=== PATIENT | male | born 1955 | race Two or more races ===

== ENCOUNTER 2020-11-02 11:06 | Emergency (ER) | payer MEDICARE ==
[~2020-11-02] VITALS: Ht 170.2 cm; Wt 75.0 kg
--- NOTE | 2020-11-02 11:12 | NUR ---
CODE BLUE: [facility] RESPONDED TO CALL TO RESIDENCE FOR ACUTELY ILL PATIENT. ARRIVED AT 1030AM. PATIENT AWAKE, RESTLESS. FOLLOWING COMMANDS. HOWEVER BREATHING LABORED/SHALLOW. PATIENT SHORTLY THERAFTER BECAME LISTLESS. CPR INITIATED AT 1035AM. EN ROUTE TO HOSPITAL RLE IO PLACED, #3 LMA PLACED PULSE CHECKS ALL ASYSTOLE. PATIENT GIVEN 4 ROUND OF EPI AND 2 ROUNDS OF BICARB. PATIENT ARRIVED AT 11:05AM. CPR IN PROGRESS, VENTILATED BY AMBU BAG WITH ASSESSMENT PATIENT REMAINS PULSELESS/PALE/MASSIVELY DISTENDED ABDOMEN/FIXED AND DIALATED PUPILS X2. 3 ROUNDS OF CPR PROVIDED. NO VITALS OBTAINABLE W/ EXCEPTION OF ETCO2 OF 30-35 WHILE CPR IN PROGRESS. ERP DEFERRING ADDITIONAL MEDICATIONS. AT 11:10AM DR. BEAVER PERFORMED CARDIAC ULTRASOUND-NO CARDIAC ACTIVITY NOTED-Misael CALLED AT 11:10AM
--- NOTE | 2020-11-02 11:55 | NUR ---
Family at bedside-They are unsure of organ donor status, they report patient battling advanced lung cancer, "fluid around the heart" and copd. Feeling fatigued x 2 days. No cough, fevers, n/v/d or loss of taste or smell [facility] called at 11:40am- After review of patient hx/cause of -patient not a candidate for tissue/organ donation. Case #
--- NOTE | 2020-11-02 12:11 | NUR ---
[facility] office called. Spoke with Александр Gore. After review Mr. george reports patient not a coroners case
--- NOTE | 2020-11-02 12:40 | NUR ---
Patient's family unsure of home. As they consider -patient transferred to our [facility] Family provided with nursing operations phone number as educated on how to proceed. Teach back successful
== END 2020-11-02 12:44 | disposition expired ==
LOC: EDBD 11:40 → MERGE 11:40 → ED 11:40
DX: I46.9 Cardiac arrest, cause unspecified (principal); I10 Essential (primary) hypertension; J44.9 Chronic obstructive pulmonary disease, unspecified; Z85.118 Personal history of other malignant neoplasm of bronchus and lung
CPT/HCPCS: 99285